=== PATIENT | male | born 1960 | race Caucasian/White ===

== ENCOUNTER → 2016-10-17 | Outpatient (CLI) | payer BC | END | disposition home or self-care (01) | LOC: LABWHC1 12:58 | PROVIDERS: ATTEND Family Medicine | DX: E29.1 Testicular hypofunction (principal) | CPT/HCPCS: 36415; 82040; 84153; 84270; 84403 ==

== ENCOUNTER → 2016-11-12 | Outpatient (CLI) | payer BC ==
[2016-11-12 10:23] LABS: Basophils # (A) 0.1 k/uL (0-0.2); Basophils % (A) 1 %; CH 30.2; CHCM 34.1; Eosinophils # (A) 0.3 k/uL (0-0.7); Eosinophils % (A) 4 %; HCT 51.8 % (39.0-53.0); Luc # (Auto) 0.26; Luc % (Auto) 4; Lymphocytes % (A) 27 %; MCH 29.3 pg (25.0-35.0); MCHC 32.8 g/dL (31.0-37.0); MCV 89.2 fL (80.0-100.0); Mean Platelet Volume 6.3; Monocytes # (A) 0.8 k/uL (0-1.0); Monocytes % (A) 10 %; Neutrophils % (A) 54 %; RBC 5.81 m/uL (4.30-5.90); WBC 7.5 k/uL (3.8-10.6); WBC (Perox) 7.23
[2016-11-12 11:34] LABS: ALT 47 U/L (21-72); AST 40 U/L (17-59); Alkaline Phosphatase 53 U/L (38-126); Anion Gap 11 mmol/L; Blood Urea Nitrogen 17 mg/dL (9-20); C Reactive Protein <5.0 mg/L (<10.0); Calcium 9.5 mg/dL (8.4-10.2); Carbon Dioxide 26 mmol/L (22-30); Chloride 105 mmol/L (98-107); Glucose 94 mg/dL (74-99); Non-African American GFR(MDRD) >60 (>60 ml/min/1.73 sqM); Potassium 4.4 mmol/L (3.5-5.1); Rheumatoid Factor, Qnt <9 IU/mL (<12); Sodium 142 mmol/L (137-145); Total Bilirubin 0.7 mg/dL (0.2-1.3); Total Protein 7.3 g/dL (6.3-8.2)
[2016-11-12 14:32] LABS: Erythrocyte Sedimentation Rate 2 mm/hr (0-15)
[2016-11-13 06:39] LABS: Lyme Antibodies Total(IgG/IgM) 0.03 (<0.90)
[2016-11-13 13:16] LABS: HLA B27 POSITIVE; HLA B27 Comment SEEBELOW
== END | disposition home or self-care (01) ==
LOC: LABWHC1 09:42
PROVIDERS: ATTEND Family Medicine
DX: M15.8 Other polyosteoarthritis (principal); Z82.61 Family history of arthritis
CPT/HCPCS: 36415; 80053; 84443; 85025; 85652; 86140; 86431; 86618; 86780; 86812

== ENCOUNTER → 2016-11-28 | Outpatient (CLI) | payer BC ==
--- NOTE | 2016-11-28 10:50 | XR ---
EXAM TYPE: LUMBAR SPINE X RAY SERIES COMPARISON: NONE HISTORY: Back pain TECHNIQUE: 4 views are submitted. FINDINGS: Alignment is anatomic. The pedicles are intact. The transverse processes are intact. There is no g rade 1 anterolisthesis L4 and 5 with severe degenerative disc disease at levels L3-4, L4-5 and L5-S1 with facet arthropathy. Hypertrophic spurs are noted anteriorly at multiple levels. Surgical clips in the right upper quadran t noted. IMPRESSION: 1. Multilevel severe degenerative disc disease. Grade 1 anterolisthesis L4 and L5.
== END | disposition home or self-care (01) ==
LOC: RADXRMAIN 10:28
PROVIDERS: ATTEND Family Medicine
DX: M43.16 Spondylolisthesis, lumbar region (principal); M51.36 Other intervertebral disc degeneration, lumbar region
CPT/HCPCS: 72110

== ENCOUNTER → 2017-05-25 | Outpatient (CLI) | payer BC | END | disposition home or self-care (01) | LOC: LABWHC1 11:28 | PROVIDERS: ATTEND Family Medicine | DX: E29.1 Testicular hypofunction (principal); N52.9 Male erectile dysfunction, unspecified | CPT/HCPCS: 36415; 82040; 84270; 84403 ==

== ENCOUNTER → 2018-06-01 | Outpatient (CLI) | payer BC ==
[2018-06-01 08:51] LABS: HCT 50.9 % (39.0-53.0); HGB 17.1 gm/dL (13.0-17.5); MCH 30.3 pg (25.0-35.0); MCHC 33.6 g/dL (31.0-37.0); MCV 90.3 fL (80.0-100.0); Mean Platelet Volume 6.4; Platelet Count 236 k/uL (150-450); RBC 5.64 m/uL (4.30-5.90); RDW 13.1 % (11.5-15.5); WBC 9.4 k/uL (3.8-10.6)
[2018-06-01 10:18] LABS: Eosinophils # (M) 0.47 k/uL (0-0.7); Lymphocytes # (M) 4.98 k/uL (1.0-4.8); Monocytes # (M) 1.13 k/uL (0-1.0); Neutrophils # (M) 2.82 k/uL (1.3-7.7); Neutrophils % (M) 30 %; Nucleated Red Blood Cells 0 /100 WBC (0-0); Total Cells Counted 100
[2018-06-01 19:16] LABS: Albumin 4.6 g/dL (3.80-4.90); Albumin/Globulin Ratio 2.56 (1.20-2.10); Anion Gap 10.5 mmol/L (4.00-12.00); Calcium 9.6 mg/dL (8.7-10.3); Carbon Dioxide 26.5 mmol/L (21.6-31.8); Globulin 1.8 g/dL (2.1-3.7); LDL Cholesterol,Calculated 84.2 mg/dL (0.0-131.0); Potassium 4.1 mmol/L (3.5-5.5); Total Bilirubin 0.4 mg/dL (0.2-1.2); Total Protein 6.4 g/dL (6.2-8.2); VLDL Calculation 55.8 mg/dL (5.00-40.00)
== END | disposition home or self-care (01) ==
LOC: LABWHC1 08:15
PROVIDERS: ATTEND Family Medicine
DX: E29.1 Testicular hypofunction (principal); I10 Essential (primary) hypertension; M54.5 Low back pain; Z79.899 Other long term (current) drug therapy
CPT/HCPCS: 36415; 80053; 80061; 82040; 84153; 84270; 84403; 84439; 84443; 85025

== ENCOUNTER → 2018-07-20 | Outpatient (CLI) | payer BC ==
[2018-07-20 08:54] LABS: Basophils # (A) 0.1 k/uL (0-0.2); Basophils % (A) 1 %; Eosinophils # (A) 0.3 k/uL (0-0.7); Eosinophils % (A) 4 %; HCT 54.4 % (39.0-53.0); Lymphocytes # (A) 3.6 k/uL (1.0-4.8); Lymphocytes % (A) 42 %; MCH 30.4 pg (25.0-35.0); MCV 92.1 fL (80.0-100.0); Mean Platelet Volume 6.4; Monocytes # (A) 0.8 k/uL (0-1.0); Monocytes % (A) 9 %; Neutrophils # (A) 3.6 k/uL (1.3-7.7); Neutrophils % (A) 41 %; Platelet Count 272 k/uL (150-450); RBC 5.91 m/uL (4.30-5.90); RDW 12.8 % (11.5-15.5); WBC 8.7 k/uL (3.8-10.6)
[2018-07-20 16:22] LABS: Albumin 4.8 g/dL (3.80-4.90); Anion Gap 8.6 mmol/L (4.00-12.00); Calcium 9.6 mg/dL (8.7-10.3); Carbon Dioxide 30.4 mmol/L (21.6-31.8); Globulin 1.6 g/dL (1.6-3.3); Potassium 4.4 mmol/L (3.5-5.5); Total Bilirubin 0.4 mg/dL (0.3-1.2); Total Protein 6.4 g/dL (6.2-8.2)
== END | disposition home or self-care (01) ==
LOC: LABWHC1 08:26
PROVIDERS: ATTEND Dermatology MOHS-Micrographic Surgery
DX: Z51.81 Encounter for therapeutic drug level monitoring (principal); Z79.899 Other long term (current) drug therapy
CPT/HCPCS: 36415; 80053; 85025

== ENCOUNTER → 2018-08-06 | Outpatient (CLI) | payer BC ==
[2018-08-06 08:25] LABS: Basophils # (A) 0.1 k/uL (0-0.2); Basophils % (A) 1 %; Eosinophils # (A) 0.4 k/uL (0-0.7); Eosinophils % (A) 4 %; HCT 53.5 % (39.0-53.0); Lymphocytes # (A) 3.5 k/uL (1.0-4.8); Lymphocytes % (A) 39 %; MCH 29.1 pg (25.0-35.0); MCHC 31.8 g/dL (31.0-37.0); MCV 91.6 fL (80.0-100.0); Mean Platelet Volume 6.4; Monocytes # (A) 0.8 k/uL (0-1.0); Monocytes % (A) 9 %; Neutrophils # (A) 3.9 k/uL (1.3-7.7); Neutrophils % (A) 43 %; Platelet Count 233 k/uL (150-450); RBC 5.84 m/uL (4.30-5.90); RDW 12.8 % (11.5-15.5)
[2018-08-06 17:31] LABS: Albumin 4.5 g/dL (3.80-4.90); Albumin/Globulin Ratio 2.37 (1.60-3.17); Anion Gap 10.2 mmol/L (4.00-12.00); Calcium 9.3 mg/dL (8.7-10.3); Carbon Dioxide 27.8 mmol/L (21.6-31.8); Globulin 1.9 g/dL (1.6-3.3); Potassium 4.1 mmol/L (3.5-5.5); Total Bilirubin 0.3 mg/dL (0.2-1.2); Total Protein 6.4 g/dL (6.2-8.2)
== END | disposition home or self-care (01) ==
LOC: LABWHC1 07:41
PROVIDERS: ATTEND Dermatology MOHS-Micrographic Surgery
DX: Z51.81 Encounter for therapeutic drug level monitoring (principal); Z79.899 Other long term (current) drug therapy
CPT/HCPCS: 36415; 80053; 85025

== ENCOUNTER → 2018-10-28 | Outpatient (CLI) | payer BC ==
[2018-10-28 10:17] LABS: Basophils # (A) 0.1 k/uL (0-0.2); Basophils % (A) 1 %; Eosinophils # (A) 0.4 k/uL (0-0.7); Eosinophils % (A) 4 %; HCT 50.9 % (39.0-53.0); HGB 16.8 gm/dL (13.0-17.5); Lymphocytes % (A) 35 %; MCH 30.2 pg (25.0-35.0); MCV 91.8 fL (80.0-100.0); Mean Platelet Volume 6.8; Monocytes # (A) 0.9 k/uL (0-1.0); Monocytes % (A) 11 %; Neutrophils # (A) 3.8 k/uL (1.3-7.7); Neutrophils % (A) 45 %; Platelet Count 255 k/uL (150-450); RBC 5.54 m/uL (4.30-5.90); RDW 15.1 % (11.5-15.5); WBC 8.4 k/uL (3.8-10.6)
[2018-10-28 16:03] LABS: Albumin 4.8 g/dL (3.80-4.90); Albumin/Globulin Ratio 2.82 (1.60-3.17); Anion Gap 9.3 mmol/L (4.00-12.00); Calcium 9.7 mg/dL (8.7-10.3); Carbon Dioxide 27.7 mmol/L (21.6-31.8); Globulin 1.7 g/dL (1.6-3.3); Potassium 4.2 mmol/L (3.5-5.5); Total Bilirubin 0.6 mg/dL (0.3-1.2); Total Protein 6.5 g/dL (6.2-8.2)
== END | disposition home or self-care (01) ==
LOC: LABWHC1 09:05
PROVIDERS: ATTEND Family Medicine
DX: I10 Essential (primary) hypertension (principal); E29.1 Testicular hypofunction; L40.9 Psoriasis, unspecified; M45.0 Ankylosing spondylitis of multiple sites in spine
CPT/HCPCS: 36415; 80053; 82040; 84153; 84270; 84403; 85025

== ENCOUNTER → 2019-06-08 | Outpatient (CLI) | payer BC ==
[2019-06-08 08:36] LABS: Basophils # (A) 0.1 k/uL (0-0.2); Basophils % (A) 1 %; Eosinophils # (A) 0.4 k/uL (0-0.7); Eosinophils % (A) 4 %; HCT 50.5 % (39.0-53.0); HGB 17.4 gm/dL (13.0-17.5); Lymphocytes # (A) 2.9 k/uL (1.0-4.8); Lymphocytes % (A) 30 %; MCH 31.9 pg (25.0-35.0); MCHC 34.5 g/dL (31.0-37.0); MCV 92.4 fL (80.0-100.0); Mean Platelet Volume 5.5; Monocytes # (A) 0.8 k/uL (0-1.0); Monocytes % (A) 8 %; Neutrophils # (A) 5.3 k/uL (1.3-7.7); Neutrophils % (A) 55 %; Platelet Count 255 k/uL (150-450); RBC 5.46 m/uL (4.30-5.90); RDW 12.7 % (11.5-15.5); WBC 9.6 k/uL (3.8-10.6)
[2019-06-08 17:55] LABS: African American GFR (CKD) 63.3 (60.0-200.0); Albumin 4.8 g/dL (3.80-4.90); Albumin/Globulin Ratio 2.67 (1.60-3.17); Anion Gap 9.6 mmol/L (4.00-12.00); Calcium 9.6 mg/dL (8.7-10.3); Carbon Dioxide 27.4 mmol/L (21.6-31.8); Globulin 1.8 g/dL (1.6-3.3); Non-African American GFR(CKD) 54.6 (60.0-200.0); Total Bilirubin 0.3 mg/dL (0.2-1.2); Total Protein 6.6 g/dL (6.2-8.2)
== END | disposition home or self-care (01) ==
LOC: LABWHC1 08:04 → EDSTATUS 08:23
PROVIDERS: ATTEND Dermatology MOHS-Micrographic Surgery
DX: Z51.81 Encounter for therapeutic drug level monitoring (principal); Z79.899 Other long term (current) drug therapy
CPT/HCPCS: 36415; 80053; 85025

== ENCOUNTER → 2019-07-26 | Outpatient (CLI) | payer BC ==
[2019-07-26 17:09] LABS: Chol/HDL Ratio 5.32; LDL Cholesterol,Calculated 101.8 mg/dL (0.0-131.0); VLDL Calculation 45.2 mg/dL (5.00-40.00)
== END | disposition home or self-care (01) ==
LOC: LABWHC1 09:55
PROVIDERS: ATTEND Family Medicine
DX: M45.0 Ankylosing spondylitis of multiple sites in spine (principal); I10 Essential (primary) hypertension; Z12.12 Encounter for screening for malignant neoplasm of rectum; Z79.899 Other long term (current) drug therapy
CPT/HCPCS: 36415; 80061; 84153

== ENCOUNTER → 2020-01-03 | Outpatient (CLI) | payer BC | END | disposition home or self-care (01) | LOC: LABWHC1 07:47 | PROVIDERS: ATTEND Family Medicine | DX: N52.9 Male erectile dysfunction, unspecified (principal) | CPT/HCPCS: 36415; 82040; 84270; 84403 ==

== ENCOUNTER → 2020-01-19 | Outpatient (CLI) | payer BC ==
[2020-01-20 01:41] LABS: African American GFR (CKD) 75.7 (60.0-200.0); Albumin 4.5 g/dL (3.80-4.90); Albumin/Globulin Ratio 2.37 (1.60-3.17); Anion Gap 10.6 mmol/L (4.00-12.00); BUN/Creat Ratio 18.33 Ratio (12.00-20.00); Calcium 9.4 mg/dL (8.7-10.3); Carbon Dioxide 26.4 mmol/L (21.6-31.8); Globulin 1.9 g/dL (1.6-3.3); Non-African American GFR(CKD) 65.3 (60.0-200.0); Potassium 4.1 mmol/L (3.5-5.5); Total Bilirubin 0.4 mg/dL (0.3-1.2); Total Protein 6.4 g/dL (6.2-8.2)
== END | disposition home or self-care (01) ==
LOC: LABWHC1 14:25
PROVIDERS: ATTEND Dermatology MOHS-Micrographic Surgery
DX: Z51.81 Encounter for therapeutic drug level monitoring (principal); Z79.899 Other long term (current) drug therapy
CPT/HCPCS: 36415; 80053

== ENCOUNTER → 2020-01-19 | Outpatient (CLI) | payer BC ==
--- NOTE | 2020-01-20 10:58 | XR ---
EXAMINATION TYPE: XR shoulder complete RT DATE OF EXAM: 01/19/2020 CLINICAL HISTORY: pain TECHNIQUE: Three views of the right shoulder are obtained. COMPARISON: None FINDINGS: There is no acute fracture/dislocation evident. The acromioclavicular and glenohumeral willy int spaces appear moderately narrowed. Subacromial spurring resulting in impingement.. The visualize d ribs are intact and unremarkable. IMPRESSION: 1. There is no acute fracture or dislocation. ICD 10 NO FRACTURE, INITIAL EVALUATION
== END | disposition home or self-care (01) ==
LOC: RADXRMAIN 14:03
PROVIDERS: ATTEND Family Medicine
DX: M25.511 Pain in right shoulder (principal)

== ENCOUNTER → 2020-02-06 | Outpatient (CLI) | payer BC ==
--- NOTE | 2020-02-08 13:34 | P.ARTDOP ---
Arterial Doppler LOWER EXTREMITY ARTERIAL DOPPLER: DATE OF SERVICE: 02/06/2020 Reason for study: Cold feet. Doppler waveforms: Multiphasic bilaterally throughout. Pulse volume recording: []. Pressure gradients: None. Ankle-brachial indices: Greater than 1 bilaterally. Toe brachial indices: 0.74 on the right, 0.8 on the left Impression: Normal study.
== END | disposition home or self-care (01) ==
LOC: RADUSWWP 08:24
PROVIDERS: ATTEND Family Medicine
DX: I73.9 Peripheral vascular disease, unspecified (principal); Z88.5 Allergy status to narcotic agent; Z91.040 Latex allergy status
CPT/HCPCS: 93922

== ENCOUNTER → 2020-02-23 | Outpatient (CLI) | payer BC, OTHER | END | disposition home or self-care (01) | LOC: RADMRIMAIN 10:55 | PROVIDERS: ATTEND Orthopaedic Surgery | DX: Z53.9 Procedure and treatment not carried out, unspecified reason (principal) ==

== ENCOUNTER 2020-03-27 06:08 | Day surgery (SDC) | payer BC, OTHER ==
[2020-03-22 14:34] VITALS: BMI 27.9
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
[~2020-03-27 06:08] MED LIST: DEXAMETHASONE SOD PHOSPHATE 10 MG/ML 1 ML VIAL IV ONE; HYDROmorphone 0.5 MG/0.5 ML SYRINGE IVP PRN; LACTATED RINGERS 1,000 ML IV SCH; LIDOCAINE 1% (10MG/ML) FOR IV START INTRADERMA PRN; MIDAZOLAM 2 MG/2 ML VIAL IV PRN; ONDANSETRON 4 MG/2 ML VIAL IVP ONE
[2020-03-27 06:37] VITALS: RESP 16
--- NOTE | 2020-03-27 07:08 | P.ANPRN ---
Procedure Note - Anesthesia - Nerve Block Performed Right Interscalene Single Time Out Performed: Yes Date of Procedure: 03/27/20 Procedure Start Time: 07:00 Procedure Stop Time: 07:05 Location of Patient: PreOp Indication: Acute Post-Operative Pain, Requested by Surgeon Sedation Type: Sedate with meaningful contact maintained Position: Supine Catheter: None Needle Types: Pajunk Needle Gauge: 20 Ultrasound used to visualize needle placement: Yes Ultrasound used to observe medication spread: Yes Injectate: Other (see comment) (20 ML OF ROPI WITH 4 MG DECADRON) Blood Aspirated: No Pain Paresthesia on Injection Noted: No Resistance on Injection: Normal Image Stored and Saved: Yes Events: Uneventful and Well Tolerated
[2020-03-27] MEDS ORDERED: fentaNYL (PF) 50 MCG/ML 2 ML AMP ONE (07:55)
[2020-03-27] MEDS ORDERED: MIDAZOLAM 2 MG/2 ML VIAL ONE (07:55)
[2020-03-27] MEDS ORDERED: SUCCINYLCHOLINE CHLORIDE 100 MG/5 ML SYR IV ONE (07:55)
[2020-03-27] MEDS ORDERED: LIDOCAINE 1% INJ 10MG/ML (20 ML MDV) ONE (07:55)
[2020-03-27] MEDS ORDERED: PHENYLEPHRINE-0.9% NACL SYG 1 MG/10 ML SYRINGE ONE (07:55)
[2020-03-27] MEDS ORDERED: PROPOFOL 10 MG/ML 20 ML VIAL IV ONE (07:55)
[2020-03-27] MEDS ORDERED: LACTATED RINGERS 1,000 ML IV ONE (08:52)
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
[2020-03-27 10:01] VITALS: TEMP 97
[2020-03-27] MEDS ORDERED: HYDROcodone/APAP 7.5-325MG 1 EACH TAB ONE (10:54)
[2020-03-27] MEDS ORDERED: HYDROcodone/APAP 7.5-325MG 1 EACH TAB PO ONE (10:56)
[2020-03-27 11:41] VITALS: BP 116/78; PULSE 79
== END 2020-03-27 12:03 | disposition home or self-care (01) ==
LOC: OR 06:08
PROVIDERS: ATTEND Orthopaedic Surgery
DX: S46.011A Strain of muscle(s) and tendon(s) of the rotator cuff of right shoulder, initial encounter (principal); S43.431A Superior glenoid labrum lesion of right shoulder, initial encounter; S46.111A Strain of muscle, fascia and tendon of long head of biceps, right arm, initial encounter; V40.5XXA Car driver injured in collision with pedestrian or animal in traffic accident, initial encounter; I10 Essential (primary) hypertension; E78.5 Hyperlipidemia, unspecified; M45.9 Ankylosing spondylitis of unspecified sites in spine; F41.9 Anxiety disorder, unspecified; Z79.899 Other long term (current) drug therapy; Z88.5 Allergy status to narcotic agent; Z87.891 Personal history of nicotine dependence; Z91.040 Latex allergy status; Z90.49 Acquired absence of other specified parts of digestive tract; Z98.890 Other specified postprocedural states; Z82.5 Family history of asthma and other chronic lower respiratory diseases; Z80.9 Family history of malignant neoplasm, unspecified
CPT/HCPCS: 29826; 29827; 64415; C1713 ×4; J2250; J1100; J0690; J2405; J2001; J3010; J2370; J0330; J2704

== ENCOUNTER → 2020-11-19 | Outpatient (CLI) | payer BC ==
[2020-11-19 14:48] LABS: Basophils # (A) 0.07 X 10*3/uL (0.00-0.10); Basophils % (A) 0.8 %; Eosinophils # (A) 0.27 X 10*3/uL (0.04-0.35); Eosinophils % (A) 3.2 %; HCT 52.7 % (39.6-50.0); Lymphocytes # (A) 2.25 X 10*3/uL (0.90-5.00); Lymphocytes % (A) 27.1 %; MCH 30.6 pg (27.0-32.0); MCHC 32.3 g/dL (32.0-37.0); MCV 94.8 fL (80.0-97.0); Mean Platelet Volume 9.2 fL (9.5-12.2); Monocytes # (A) 0.93 X 10*3/uL (0.20-1.00); Monocytes % (A) 11.2 %; Neutrophils # (A) 4.52 X 10*3/uL (1.80-7.70); Neutrophils % (A) 54.5 %; Platelet Count 241 X 10*3/uL (140-440); RBC 5.56 X 10*6/uL (4.40-5.60); RDW 13.2 % (11.5-14.5); WBC 8.31 X 10*3/uL (4.50-10.00)
[2020-11-19 16:22] LABS: African American GFR (CKD) 94.4 (60.0-200.0); Albumin 4.6 g/dL (3.80-4.90); Albumin/Globulin Ratio 2.09 (1.60-3.17); Calcium 9.3 mg/dL (8.7-10.3); Chol/HDL Ratio 5.29; Globulin 2.2 g/dL (1.6-3.3); LDL Cholesterol,Calculated 108.6 mg/dL (0.0-131.0); Non-African American GFR(CKD) 81.4 (60.0-200.0); Potassium 4.4 mmol/L (3.5-5.5); Total Bilirubin 0.4 mg/dL (0.2-1.2); Total Protein 6.8 g/dL (6.2-8.2); VLDL Calculation 37.4 mg/dL (5.00-40.00)
[2020-11-19 16:30] LABS: Prostate Specific Antigen 0.8 ng/mL (0.0-4.5)
== END | disposition home or self-care (01) ==
LOC: LABWHC1 08:17
PROVIDERS: ATTEND Family Medicine
DX: Z00.00 Encounter for general adult medical examination without abnormal findings (principal); E29.1 Testicular hypofunction
CPT/HCPCS: 36415; 80053; 80061; 82040; 84153; 84270; 84403; 84443; 85025; 87522

== ENCOUNTER → 2021-01-08 | Outpatient (CLI) | payer BC ==
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
== END | disposition home or self-care (01) ==
LOC: RADMRIMAIN 11:07
PROVIDERS: ATTEND Orthopaedic Surgery
DX: S89.92XA Unspecified injury of left lower leg, initial encounter (principal); M17.12 Unilateral primary osteoarthritis, left knee

== ENCOUNTER → 2021-01-15 | Outpatient (CLI) | payer BC ==
[2021-01-15 17:01] LABS: HCT 52.2 % (39.6-50.0); HGB 17.1 g/dL (13.0-17.0); MCH 30.9 pg (27.0-32.0); MCHC 32.8 g/dL (32.0-37.0); MCV 94.4 fL (80.0-97.0); Mean Platelet Volume 9.2 fL (9.5-12.2); Platelet Count 290 X 10*3/uL (140-440); RBC 5.53 X 10*6/uL (4.40-5.60); RDW 13.3 % (11.5-14.5)
[2021-01-15 17:49] LABS: Basophils # (M) 0.12 X 10*3/uL (0.00-0.10); Eosinophils # (M) 0.12 X 10*3/uL (0.04-0.35); Lymphocytes # (M) 3.34 X 10*3/uL (0.90-5.00); Monocytes # (M) 1.61 X 10*3/uL (0.20-1.00); Neutrophils # (M) 6.33 X 10*3/uL (2.00-8.90); Neutrophils % (M) 55 %
[2021-01-15 19:54] LABS: Erythrocyte Sedimentation Rate 1 mm/Hr (0-20)
== END | disposition home or self-care (01) ==
LOC: LABWHC1 10:36
PROVIDERS: ATTEND Family Medicine
DX: M10.9 Gout, unspecified (principal)
CPT/HCPCS: 36415; 84550; 85025; 85652

== ENCOUNTER → 2021-06-03 | Outpatient (CLI) | payer OTHER ==
[2021-06-03 14:17] LABS: Basophils # (A) 0.06 X 10*3/uL (0.00-0.10); Basophils % (A) 0.7 %; Eosinophils # (A) 0.21 X 10*3/uL (0.04-0.35); Eosinophils % (A) 2.4 %; HCT 51.3 % (39.6-50.0); Lymphocytes # (A) 2.44 X 10*3/uL (0.90-5.00); Lymphocytes % (A) 28.4 %; MCH 30.7 pg (27.0-32.0); MCHC 33.1 g/dL (32.0-37.0); MCV 92.8 fL (80.0-97.0); Mean Platelet Volume 9.2 fL (9.5-12.2); Monocytes # (A) 1.12 X 10*3/uL (0.20-1.00); Neutrophils # (A) 4.56 X 10*3/uL (1.80-7.70); Neutrophils % (A) 53.1 %; Platelet Count 249 X 10*3/uL (140-440); RBC 5.53 X 10*6/uL (4.40-5.60); RDW 13.3 % (11.5-14.5)
[2021-06-03 14:50] LABS: ALT 29 U/L (10-49); AST 28 U/L (14-35); African American GFR (CKD) 75.2 (60.0-200.0); Albumin 4.9 g/dL (3.8-4.9); Albumin/Globulin Ratio 2.23 (1.60-3.17); Alkaline Phosphatase 62 U/L (41-126); BUN/Creat Ratio 21.25 Ratio (12.00-20.00); Bilirubin, Conjugated <0.20 mg/dL (0.20-0.40); Blood Urea Nitrogen 25.5 mg/dL (9.0-27.0); Calcium 9.8 mg/dL (8.7-10.3); Carbon Dioxide 24.6 mmol/L (20.0-27.5); Chloride 99 mmol/L (96-109); Globulin 2.2 g/dL (1.6-3.3); Glucose 109 mg/dL (70-110); Non-African American GFR(CKD) 64.9 (60.0-200.0); Potassium 4.5 mmol/L (3.5-5.5); Sodium 136 mmol/L (135-145); Total Protein 7.1 g/dL (6.2-8.2)
== END | disposition home or self-care (01) ==
LOC: LABWHC1 08:40
PROVIDERS: ATTEND Internal Medicine
DX: Z51.81 Encounter for therapeutic drug level monitoring (principal); M47.819 Spondylosis without myelopathy or radiculopathy, site unspecified
CPT/HCPCS: 36415; 80053; 82248; 85025; 86480

== ENCOUNTER → 2022-04-30 | Outpatient (CLI) | payer OTHER ==
[2022-04-30 19:03] LABS: ALT 28 U/L (10-49); AST 33 U/L (14-35); Albumin 4.7 g/dL (3.8-4.9); Albumin/Globulin Ratio 1.96 (1.60-3.17); Alkaline Phosphatase 63 U/L (41-126); Bilirubin, Conjugated <0.20 mg/dL (0.20-0.40); Globulin 2.4 g/dL (1.6-3.3); Total Protein 7.1 g/dL (6.2-8.2)
== END | disposition home or self-care (01) ==
LOC: LABWHC1 13:49
PROVIDERS: ATTEND Internal Medicine
DX: Z51.81 Encounter for therapeutic drug level monitoring (principal); M45.9 Ankylosing spondylitis of unspecified sites in spine
CPT/HCPCS: 36415; 80076; 86480

== ENCOUNTER → 2023-06-17 | Outpatient (CLI) | payer MEDICARE, OTHER ==
[2023-06-17 19:21] LABS: ALT 30 U/L (10-49); AST 32 U/L (14-35); Albumin 4.9 g/dL (3.8-4.9); Albumin/Globulin Ratio 2.13 Ratio (1.60-3.17); Alkaline Phosphatase 71 U/L (41-126); BUN/Creat Ratio 15.45 Ratio (12.00-20.00); Carbon Dioxide 24.8 mmol/L (21.6-31.8); Chloride 99 mmol/L (96-109); Globulin 2.3 g/dL (1.6-3.3); Glucose 88 mg/dL (70-110); Potassium 4.5 mmol/L (3.5-5.5); Sodium 138 mmol/L (135-145); Total Bilirubin 0.4 mg/dL (0.3-1.2); Total Protein 7.2 g/dL (6.2-8.2)
[2023-06-17 19:55] LABS: Basophils # (A) 0.03 X 10*3/uL (0.00-0.10); Basophils % (A) 0.4 %; Eosinophils # (A) 0.25 X 10*3/uL (0.04-0.35); Eosinophils % (A) 3.3 %; HCT 50.5 % (39.6-50.0); HGB 16.7 g/dL (13.0-17.0); Lymphocytes # (A) 2.31 X 10*3/uL (0.90-5.00); Lymphocytes % (A) 30.8 %; MCH 29.8 pg (27.0-32.0); MCHC 33.1 g/dL (32.0-37.0); MCV 90.2 FL (80.0-97.0); Mean Platelet Volume 9.6 FL (9.5-12.2); Monocytes # (A) 0.87 X 10*3/uL (0.20-1.00); Monocytes % (A) 11.6 %; NRBC Per 100 WBC 0 X 10*3/uL (0.00-0.01); Neutrophils # (A) 3.76 X 10*3/uL (1.80-7.70); Neutrophils % (A) 50.2 %; Platelet Count 244 X 10*3/uL (140-440); RDW 13.4 % (11.5-14.5)
== END | disposition home or self-care (01) ==
LOC: LABWHC1 12:17
PROVIDERS: ATTEND Internal Medicine
DX: Z51.81 Encounter for therapeutic drug level monitoring (principal); M47.819 Spondylosis without myelopathy or radiculopathy, site unspecified; D84.9 Immunodeficiency, unspecified; M45.9 Ankylosing spondylitis of unspecified sites in spine; Z79.620 Long term (current) use of immunosuppressive biologic
CPT/HCPCS: 36415; 80053; 85025; 86480

== ENCOUNTER → 2024-10-03 | Outpatient (CLI) | payer MEDICARE ==
--- NOTE | 2024-10-03 14:31 | XR ---
EXAMINATION TYPE: XR lumbosacral spine min 4V DATE OF EXAM: 10/03/2024 CLINICAL INDICATION: Male, 63 years old with history of M54.16 M450 M06.09 [id number], pain TECHNIQUE: Frontal, lateral, and oblique images of the lumbar spine are obtained. COMPARISON: Lumbar spine x-ray November 28, 2016 FINDINGS: There are 5 lumbar type vertebral bodies redemonstrated given hypoplastic right T12 rib re demonstrated. The lumbar spine shows slight scoliotic curvature. There is multilevel spondylolisthes is in the upper to mid lumbar spine redemonstrated. Vertebral body heights are maintained. There is m oderate to severe multilevel spurring and disc space narrowing which has progressed from 2017 study. Overlying cholecystectomy clips are redemonstrated. IMPRESSION: As above. [facility], , 10/03/2024 2:28 PM
== END | disposition home or self-care (01) ==
LOC: LABWHC1 13:57
PROVIDERS: ATTEND Family Medicine
DX: M43.16 Spondylolisthesis, lumbar region (principal); M06.09 Rheumatoid arthritis without rheumatoid factor, multiple sites; M45.0 Ankylosing spondylitis of multiple sites in spine; M51.16 Intervertebral disc disorders with radiculopathy, lumbar region; M41.86 Other forms of scoliosis, lumbar region
CPT/HCPCS: 72110

== ENCOUNTER → 2024-11-11 | Outpatient (CLI) | payer MEDICARE ==
--- NOTE | 2024-11-12 10:27 | MR ---
EXAMINATION TYPE: MR lumbar spine wo con DATE OF EXAM: 11/11/2024 2:28 PM COMPARISON: Plain film 10/03/2024. CLINICAL INDICATION: Male, 63 years old with history of M54.16 LUMBAR RADICULOPATH,M45.0,M06.09,M43.1 6,M47, Sciatica right side x4 weeks TECHNIQUE: Multi planar, multi sequence imaging was performed utilizing: T1-weighted, T2-weighted, a nd turbo inversion recovery imaging of the lumbar spine. IV Contrast: mL (None, if empty) FINDINGS: Alignment: The lumbar vertebral bodies have preserved heights with grade 1 anterolisthesis of L4 on L 5. Cord: The conus medullaris and the distal spinal cord appear unremarkable with regards to their signa l intensity and morphology. Bones/Discs: Severe degeneration changes throughout the spine with osteophyte formation and facet kervin nt arthropathy. Scattered Modic endplate changes throughout the spine adjoining bony edema likely joaquín ctive at the adjoining endplates of L2-L3 posteriorly and the superior anterior endplate of L1. Multi level disc desiccation is present. Pseudoarthrosis of the spinous processes. T12-L1: No evidence of significant spinal canal stenosis or neural foraminal stenosis. L1-L2: Disc bulge and facet joint arthropathy result in mild spinal canal and mild to moderate bilate ral neural foraminal stenosis. L2-L3: Disc extrusion with 16 mm inferior disc migration resulting in mild effacement of the cauda eq uina on the right. Mild to moderate spinal canal stenosis is present. There is moderate right and mil [id number] left neural foraminal stenosis. L3-L4: Disc bulge and facet joint arthropathy result in mild spinal canal and severe right and modera te left neural foraminal stenosis. L4-L5: No evidence of significant spinal canal stenosis. Facet joint arthropathy moderate to severe b ilateral neural foraminal stenosis. L5-S1: The disc has a rounded with a flattened morphology without significant spinal canal stenosis. Facet joint arthropathy with severe bilateral neural foraminal stenosis. No significant spinal canal or neural foraminal stenosis in the remainder of the visualized levels. Other findings: None. IMPRESSION: 1. Severe degeneration throughout the spine. 2. L2-L3 right central/subarticular disc extrusion with 16 mm inferior migration with mild spinal ca nal stenosis and effacement of the cauda equina. 3. L5-S1 severe bilateral neural foraminal stenosis due to osteophytes and facet joint arthropathy. 4. L4-L5 moderate to severe bilateral neural foraminal stenosis due to osteophytes and facet joint a rthropathy. 5. L3-L4 severe right and moderate left neural foraminal stenosis due to osteophytes and facet joint arthropathy. 6. Grade 1 anterolisthesis of L4 and L5. 7. 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 [facility], , 11/12/2024 10:24 AM
== END | disposition home or self-care (01) ==
LOC: RADMRIMAIN 13:32
PROVIDERS: ATTEND Family Medicine
DX: M51.16 Intervertebral disc disorders with radiculopathy, lumbar region (principal); M47.26 Other spondylosis with radiculopathy, lumbar region; M45.0 Ankylosing spondylitis of multiple sites in spine; M06.09 Rheumatoid arthritis without rheumatoid factor, multiple sites; M43.16 Spondylolisthesis, lumbar region; M96.0 Pseudarthrosis after fusion or arthrodesis; M99.73 Connective tissue and disc stenosis of intervertebral foramina of lumbar region
CPT/HCPCS: 72148